=== PATIENT | male | born 1985 | race Caucasian/White ===

== ENCOUNTER 2023-12-17 21:56 | Emergency (ER) | payer OTHER ==
[~2023-12-17] VITALS: Ht 190.5 cm; Wt 120.2 kg
[2023-12-17 22:49] VITALS: BP 186/108
[2023-12-17] MEDS: CLONIDINE HCL 0.1 MG TAB PO ONE (22:49)
[2023-12-17] MEDS: SODIUM CHLORIDE 0.9% 1000ML 1,000 ML IV ONE (23:20)
[2023-12-18 00:48] VITALS: PULSE 91; RESP 18; TEMP 98.5; O2SAT 98
[2023-12-18 01:21] VITALS: PULSE 89
== END 2023-12-18 01:15 | disposition home or self-care (01) ==
LOC: FSED 22:10
DX: M79.602 Pain in left arm (principal); E86.1 Hypovolemia; E86.0 Dehydration; I10 Essential (primary) hypertension; R20.2 Paresthesia of skin; R94.31 Abnormal electrocardiogram [ECG] [EKG]
CPT/HCPCS: 71046; 80053; 82553; 84484; 85025; 93005; 99284; J7030

== ENCOUNTER 2023-12-22 03:22 | Emergency (ER) | payer OTHER ==
[~2023-12-22] VITALS: Ht 190.5 cm; Wt 120.2 kg
[2023-12-22 03:25] VITALS: PULSE 99; RESP 20; TEMP 98.5; O2SAT 99
== END 2023-12-22 03:40 | disposition home or self-care (01) ==
LOC: ER 03:25
DX: R07.89 Other chest pain (principal); I10 Essential (primary) hypertension
CPT/HCPCS: 93005; 99282